=== PATIENT | male | born 1990 | race Caucasian/White ===

== ENCOUNTER 2021-11-07 04:05 | Emergency (ER) | payer OTHER ==
[~2021-11-07] VITALS: Ht 167.6 cm; Wt 68.0 kg
[2021-11-07 04:12] VITALS: BP 135/67
[2021-11-07 04:23] VITALS: BP 135/67
--- NOTE | 2021-11-07 04:23 | NUR ---
Patient discharged with v/s stable. Written and verbal after care instructions given and explained. Patient verbalized understanding. Police with in custody. All questions addressed prior to discharge. Advised to follow up with PMD.
== END 2021-11-07 04:25 ==
LOC: MED 04:05
DX: Z02.89 Encounter for other administrative examinations (principal); F17.200 Nicotine dependence, unspecified, uncomplicated; Z88.2 Allergy status to sulfonamides; Z88.1 Allergy status to other antibiotic agents; F19.90 Other psychoactive substance use, unspecified, uncomplicated; V49.88XA Car occupant (driver) (passenger) injured in other specified transport accidents, initial encounter; Y93.89 Activity, other specified; Y92.89 Other specified places as the place of occurrence of the external cause; Y99.8 Other external cause status
CPT/HCPCS: 99283